=== PATIENT | male | born 1960 | race Caucasian/White ===

== ENCOUNTER 2018-07-29 11:44 | Day surgery (SDC) | payer OTHER ==
[2018-07-29] MEDS ORDERED: PROPOFOL 40 ML (15:00)
[2018-07-29] MEDS ORDERED: LIDOCAINE 2% (SDV) 5 ML INJ (15:00)
[2018-07-29] MEDS ORDERED: LABETALOL HCL 20MG INJ (15:19)
[2018-07-29] MEDS ORDERED: PROPOFOL 20 ML (15:19)
== END 2018-07-29 16:02 | disposition home or self-care (01) ==
LOC: GIL 11:44
DX: Z12.11 Encounter for screening for malignant neoplasm of colon (principal); D12.0 Benign neoplasm of cecum; E03.9 Hypothyroidism, unspecified; I10 Essential (primary) hypertension
CPT/HCPCS: 45380; 88305